=== PATIENT | female | born 1930 | race Caucasian/White ===

== ENCOUNTER → 2017-04-20 | Outpatient (CLI) | payer OTHER ==
[~2017-04-20] MED LIST: ATENOLOL50 MG PO; BENICAR40 MG PO; DAILY VITE1 EAC1 PO; FLONASE16 G1 BOTH NARES; LEVAQUIN750 MG PO; LOVASTATIN20 MG PO; MACROBID100 MG PO; OXAZEPAM10 MG PO; SYNTHROID100 MCG PO; SYNTHROID75 MCG PO; ZOFRAN ODT4 MG PO; [UNRECOGNIZED DRUG - REMARK]
== END | disposition home or self-care (01) ==
LOC: AMB 08:52
DX: C51.9 Malignant neoplasm of vulva, unspecified (principal)
CPT/HCPCS: 88305; 88342 TC